=== PATIENT | male | born 1970 | race Caucasian/White ===

== ENCOUNTER → 2023-02-28 | Outpatient (CLI) | payer OTHER ==
--- NOTE | 2023-02-28 10:54 | Diagnostic Imaging Report ---
INDICATION: Epigastric pain x3 weeks PROCEDURE: Ultrasound abdomen complete. TECHNIQUE: Multiple real-time grayscale images were obtained of the abdomen in various projections. Liver has increased echogenicity consistent with fatty infiltration. Portal vein is patent with hepatopetal flow. The gallbladder is clear with no stones or wall thickening. Common duct is not dilated. Pancreas appears normal. The spleen is upper limits of normal in size. Aorta and IVC are normal. Right kidney measures 13 cm in length. Left kidney measures 13 cm in length. There is no solid mass, calculus or hydronephrosis in kidney. There is no ascites. IMPRESSION: Hepatic steatosis. Dictated by: Dictated on workstation # [id number]
== END ==
LOC: RAD 07:26
PROVIDERS: ATTEND Nurse Practitioner Family
DX: K76.0 Fatty (change of) liver, not elsewhere classified (principal); M54.50 Low back pain, unspecified; R10.816 Epigastric abdominal tenderness; R11.0 Nausea
CPT/HCPCS: 76700

== ENCOUNTER → 2023-03-12 | Outpatient (CLI) | payer OTHER ==
[~2023-03-12] MED LIST: CATHETER FLUSH 10 ML SYR IVP PRN; DAPA10TA PO; HYDR-3817 PO; LISI20TA26 PO; ROSU20TA32 PO
--- NOTE | 2023-03-12 15:40 | Diagnostic Imaging Report ---
INDICATION: Right upper quadrant pain and epigastric pain. Patient was administered 5.5 mCi technetium 99m Choletec intravenously and imaging over the abdomen was performed. After 45 minutes patient ingested 8 ounces Ensure and a gallbladder ejection fraction was calculated. There is homogeneous uptake of activity by the liver with prompt excretion of activity into the gallbladder and common duct. There is normal passage into the small bowel. Gallbladder ejection fraction is slightly low at 27%. Normal values are 35% or greater. IMPRESSION: 1. Patent cystic duct and common bile duct. 2. Low gallbladder ejection fraction of 27%. Dictated by: Dictated on workstation # [id number]
== END ==
LOC: CARD 11:52
PROVIDERS: ATTEND Surgery
DX: R10.11 Right upper quadrant pain (principal); R10.13 Epigastric pain; R11.0 Nausea
CPT/HCPCS: 78227; A9537

== ENCOUNTER 2023-03-13 09:26 | Outpatient (CLI) | payer OTHER ==
[~2023-03-13] VITALS: Ht 175.2 cm; Wt 114.8 kg
[2023-03-13] MEDS ORDERED: DAPA10TA PO (10:06)
[2023-03-13] MEDS ORDERED: LISI20TA26 PO (10:06)
[2023-03-13] MEDS ORDERED: ROSU20TA32 PO (10:06)
[2023-03-14] MEDS ORDERED: HYDR-3817 PO (13:19)
== END 2023-03-13 10:55 | disposition home or self-care (01) ==
LOC: PREOP 09:26
PROVIDERS: ATTEND Surgery
DX: Z01.818 Encounter for other preprocedural examination (principal)

== ENCOUNTER 2023-03-14 12:17 | Day surgery (SDC) | payer BC, OTHER ==
[2023-03-14] VITALS (11 sets, daily range): BP systolic 124–176; BP diastolic 81–92
[~2023-03-14] VITALS: Ht 175.3 cm; Wt 113.5 kg
[~2023-03-14 12:17] MED LIST changes: -CATHETER FLUSH 10 ML SYR IVP PRN; -HYDR-3817 PO
[2023-03-14] MEDS ORDERED: LIDOCAINE/EPI 1%-1:100,000 (XYLOCAINE) 20ML ONE (12:26)
[2023-03-14] MEDS ORDERED: BUP/EPI 0.5% 1:200,000 (SENSORCAINE) 30 ML VIAL ONE (12:26)
[2023-03-14] MEDS ORDERED: ceFAZolin INJECTION 2,000 MG in NS (IVPB) 50 ML IV ONE (13:00)
[2023-03-14] MEDS ORDERED: LACTATED RINGERS 1,000 ML IV PRN (13:00)
--- NOTE | 2023-03-14 13:17 | Progress Note-Pre Operative ---
Pre-Operative Progress Note Date of Available H&P: Mar 14, 2023 Date H&P Reviewed: Mar 14, 2023 Time H&P Reviewed: 13:00 History & Physical: No changes noted Pre-Operative Diagnosis: biliary dyskinesia CYNTHIA RUTH MD Mar 14, 2023 13:17
[2023-03-14] MEDS ORDERED: proPOfol 200 MG/20 ML (DIPRIVAN) VIAL IV ONE (13:19)
[2023-03-14] MEDS ORDERED: HYDR-3817 PO (13:19)
[2023-03-14] MEDS ORDERED: MIDAZOLAM 2 MG/2 ML (VERSED) VIAL ONE (13:19)
[2023-03-14] MEDS ORDERED: LIDOCAINE PF 2% 5 ML (XYLOCAINE) VIAL ONE (13:19)
[2023-03-14] MEDS ORDERED: ONDANSETRON 4 MG/2 ML (SDV) Z0FRAN ONE (13:19)
[2023-03-14] MEDS ORDERED: fentaNYL INJ 100 MCG/2 ML AMP ONE (13:19)
[2023-03-14] MEDS ORDERED: GLYCOPYRROLATE 0.2 MG/ML (ROBINUL) 2 ML VIAL ONE (13:19)
--- NOTE | 2023-03-14 13:19 | Discharge Inst-Surgical ---
D/C Lap Instructions-FLORY New, Converted, or Re-Newed RX: RX on Chart Follow Up Appt in 2 weeks Activity as tolerated No driving for 24 hours No driving while on pain medications Incentive Spirometry use every 2 hours while awake Regular Diet Symptoms to Report: Fever over 101 degree F, Nausea/Vomiting Infection Signs and Symptoms to report: Increased redness, Foul odor of wound, Increased drainage Bathing instructions: May shower Operative Area Clean/Dry; Keep incision clean/dry If any problems/questions: Contact your physician or go to Emergency Room CYNTHIA RUTH MD Mar 14, 2023 13:19
[2023-03-14] MEDS ORDERED: NEOSTIGMINE (BLOXIVERZ ) 1 MG/1ML 10 ML VIAL ONE (13:20)
[2023-03-14] MEDS ORDERED: ROCURONIUM 50 MG/5 ML (ZEMURON) VIAL IV ONE (13:20)
[2023-03-14] MEDS ORDERED: morphine INJ 10 MG/ML 1ML (SYR OR VIAL) IVP PRN ×2 (13:30)
[2023-03-14] MEDS ORDERED: ONDANSETRON 4 MG/2 ML (SDV) Z0FRAN IVP PRN ×2 (13:30→15:00)
[2023-03-14] MEDS ORDERED: oxyCODONE/APAP 5/325MG (PERCOCET 5) TABLET PO PRN (13:30)
[2023-03-14] MEDS ORDERED: ACETAMINOPHEN 325 MG TABLET PO PRN (13:30)
[2023-03-14] MEDS ORDERED: PHENYLEPHRINE 100 MCG/ML 10 ML (ANESTHESIA) SYR ONE (13:52)
[2023-03-14] MEDS ORDERED: BUP/EPI 0.5% 1:200,000 (SENSORCAINE) 30 ML VIAL INJ ONE (13:58)
[2023-03-14] MEDS ORDERED: SEVOFLURANE (ULTANE) 15 ML INHAL SOLN ONE (14:28)
--- NOTE | 2023-03-14 14:45 | Progress Note-Post Operative ---
Post-Operative Progess Note Surgeon (s)/Extruder Operator Vertical (s) Surgeon CYNTHIA RUTH MD Extruder Operator Vertical: gilbert leo FLEET ADMINISTRATOR Pre-Operative Diagnosis biliary dyskinesia Post-Operative Diagnosis chronic calculous cholecytitis Procedure & Operative Findings Date of Procedure 03/14/23 Procedure Performed/Findings laparoscopic cholecystectomy Anesthesia Type get Estimated Blood Loss Estimated blood loss (mL): minimal Specimens/Packing Specimens Removed gallbladder CYNTHIA RUTH MD Mar 14, 2023 14:45
[2023-03-14] MEDS ORDERED: morphine INJ 10 MG/ML 1ML (SYR OR VIAL) ONE (14:59)
[2023-03-14] MEDS ORDERED: morphine INJ 10 MG/ML 1ML (SYR OR VIAL) IVP ONE (15:00)
[2023-03-14] MEDS ORDERED: HYDROmorphone 2 MG/ML VIAL (DILAUDID) IV ONE (15:00)
--- NOTE | 2023-03-14 15:00 | Anesthesia-General Post-Op ---
General Patient Condition Mental Status/LOC: Same as Preop Cardiovascular: Satisfactory Nausea/Vomiting: Absent Respiratory: Satisfactory Pain: Controlled Complications: Absent Post Op Complications Complications None Follow Up Care/Instructions Patient Instructions None needed. Anesthesia/Patient Condition Patient Condition Patient is awake and doing well in PACU with no complaints other than some mild abd. pain which is to be expected, stable vital signs, no apparent adverse anesthesia problems. No complications reported per nursing. HORACE ARAUJO 15, 2023 15:00
--- NOTE | 2023-03-14 20:51 | OPERATIVE REPORT ---
DATE OF SERVICE: 03/14/2023 ATTENDING PRIMARY CARE PHYSICIAN: Dr. Oziel Ventura. PREOPERATIVE DIAGNOSIS: Symptomatic biliary dyskinesia. 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 PROCEDURE: Laparoscopic cholecystectomy. SURGEON: Cynthia Ruth MD SECURITY OPERATIONS MANAGER: Flash Samson APRN ANESTHESIA: General endotracheal. ESTIMATED BLOOD LOSS: Minimal. FINDINGS: Mild gallbladder wall thickening with very small stones and sludge. DISPOSITION: The patient tolerated the procedure well. INDICATIONS: The patient is a 53-year-old male who has had issues with heartburn as well as acid indigestion for some amount of time. He reports that in the past year, he has had more of a discomfort in the epigastric as well as a right upper abdominal quadrant with associated symptoms including crampy abdominal pain, abdominal distention and early satiety as well as intermittent episodes of nausea; however, no vomiting. Initially, an ultrasound was performed, which did not show any gallstones; however, this was followed by a HIDA scan, which did show a low ejection fraction of 27% and during the administration of the Kinevac analogue, he did have reproduction of symptoms with abdominal bloating and right upper abdominal quadrant pain as well as nausea. DESCRIPTION OF PROCEDURE: The patient was brought to the operating room, laid supine on the table. After adequate IV pain and sedative medications and general endotracheal intubation, the abdomen was prepped and draped in standard surgical fashion. A 0.5% Marcaine with epinephrine was used to anesthetize the overlying skin in the left upper abdominal quadrant and transverse skin incision made using #15 blade. An 0 silk suture was applied to the medial aspect of the incision for retraction and Veress needle inserted with a low opening pressure of 0 mmHg and the abdomen was then insufflated to 15 mmHg pressure. The Veress needle removed and a 5 mm XL trocar placed followed by a 5 mm 45-degree angle laparoscope visualizing the peritoneal cavity. A 4-quadrant abdominal exploration was performed. There was mild hepatomegaly and there did appear to be mild gallbladder wall thickening. Under direct visualization, we then proceeded to place a supraumbilical 10 mm port after the skin and peritoneal lining were anesthetized using 0.5% Marcaine with epinephrine and a transverse skin incision made using a #15 blade. In a similar manner, a right upper abdominal quadrant 5 mm port was placed. The patient was then placed in a reverse Trendelenburg position as well as plane right side up, left side down and the fundus of the gallbladder retracted anteriorly and superiorly. The hepatoduodenal ligament was then dissected using electrocautery as well as blunt dissection using the hook instrument as well as a [place] dissector. The entire critical view of safety was identified including the triangle of Calot as well as the cystic duct and artery as the only 2 structures going into the gallbladder as well as the cystic plate behind the proximal gallbladder. A timeout was then taken and the cystic duct and artery were then clipped proximally, distally and cut with EndoShears. The gallbladder was then dissected off the liver bed using cautery on the hook instrument with visualization of good hemostasis as well as no leaking ducts of Luschka. The gallbladder was removed through the 10 mm port site using an EndoCatch bag. The 10 mm port site fascia and peritoneum were then closed under direct visualization using a Corbin-Gilberto device and an 0 Vicryl suture. The abdomen was then desufflated and the remaining ports were removed. All skin incisions were closed using 4-0 Monocryl running subcuticular sutures. Wounds were then cleaned and covered with Dermabond. The patient tolerated the procedure well. We will start IV and oral pain medication as well as a clear liquid diet. Once tolerating clears with good pain control with oral pain medication is ambulating well, we will discharge him home where he will be instructed no heavy lifting or exertion for the next 2 weeks. Job ID: [id number] DocumentID: [id number] Dictated Date: 03/14/2023 14:52:07 Homoeopath Date: 03/14/2023 20:49:00 Dictated By: CYNTHIA RUTH MD
== END 2023-03-14 16:35 | disposition home or self-care (01) ==
LOC: SDC 12:17
PROVIDERS: ATTEND Surgery
DX: K82.8 Other specified diseases of gallbladder (principal); K80.10 Calculus of gallbladder with chronic cholecystitis without obstruction; E11.9 Type 2 diabetes mellitus without complications; K21.00 Gastro-esophageal reflux disease with esophagitis, without bleeding; E66.9 Obesity, unspecified; Z68.36 Body mass index [BMI] 36.0-36.9, adult; I10 Essential (primary) hypertension; E78.00 Pure hypercholesterolemia, unspecified; Z79.84 Long term (current) use of oral hypoglycemic drugs; Z79.899 Other long term (current) drug therapy
CPT/HCPCS: 82947; 87081

== ENCOUNTER → 2023-06-24 | Outpatient (CLI) | payer OTHER ==
[~2023-06-24] MED LIST changes: +HYDR-3817 PO; -ROSU20TA32 PO; +ROSU20TA73 PO
--- NOTE | 2023-06-24 14:19 | Diagnostic Imaging Report ---
PROCEDURE: US left lower extremity venous. TECHNIQUE: Multiple real-time grayscale images were obtained over the left lower extremity in various projections. Additional duplex Doppler and color Doppler images were also obtained. INDICATION: Left leg pain. COMPARISON: Non available. FINDINGS: The left common femoral, femoral and popliteal veins are patent by color doppler imaging and without DVT. Visualized proximal aspects of the greater saphenous, deep femoral, posterior tibial and peroneal veins are also patent. All of the evaluated deep venous structures demonstrate normal compressibility and waveform augmentation where applicable. IMPRESSION: No left lower extremity deep venous thrombosis (DVT). Dictated by: Dictated on workstation # [id number]
== END ==
LOC: RAD 13:29
PROVIDERS: ATTEND Emergency Medicine
DX: M79.605 Pain in left leg (principal)

== ENCOUNTER → 2023-07-03 | Outpatient (CLI) | payer OTHER ==
--- NOTE | 2023-07-03 11:13 | Diagnostic Imaging Report ---
HISTORY: Left hip pain TECHNIQUE: 2 views left hip COMPARISON: None FINDINGS: There is subtle cortical irregularity at the left inferior pubic ramus. Alignment is normal. There is mild degenerative change in the hip joint. There is mild enthesopathy at the greater trochanter. The femoral head is well-seated in the acetabulum. IMPRESSION: 1. Subtle cortical irregularity at the left inferior pubic ramus. There is a history of trauma and pain localizes to this region, recommend cross-sectional imaging to evaluate for fracture. 2. Mild degenerative changes in the left hip. Dictated by: Dictated on workstation # [id number]
== END ==
LOC: RAD FS 09:01
PROVIDERS: ATTEND Orthopaedic Surgery
DX: M16.12 Unilateral primary osteoarthritis, left hip (principal)
CPT/HCPCS: 73502